=== PATIENT | female | born 1990 | race Caucasian/White ===

== ENCOUNTER 2019-12-26 20:38 | Emergency (ER) | payer SELFPAY ==
[2019-12-26 20:38] VITALS: BP 143/85; PULSE 97; RESP 16; TEMP 35.7; O2SAT 97; BMI 29.0
--- NOTE | 2019-12-26 21:14 | ED.VIS.GEN ---
History of Present Illness Chief Complaint: Lower Extremity Injury Detail of Chief Complaint: Right leg pain Informant: Patient Onset: Weeks Context: Gradual Onset Current Severity: Mild Maximum Severity: Mild Narrative: She presents with pain to the posterior right leg. She states that she slipped on some wet steps that were covered with leaves last week. She had antalgic gait but has now had increasing sharp pain in the posterior thigh and knee on the right. Patient wanted to ensure she did not have a blood clot. She denies chest pain. - Past Medical History (1) Asthma Status: Chronic Past Medical History - Allergies and Home Meds Allergies/Adverse Reactions: Allergies No Known Allergies Allergy (Verified 12/26/19 20:40) Primary Care Physician: Care Physician,No Primary [Primary Care Provider] - Prior records reviewed: Yes Lives: With Family Smoking Status: Former smoker Review of Systems General: Denies: Chills, Fever Eyes: Denies: Visual changes - bilaterally ENT: Denies: Bilateral ear pain Cardiovascular: Denies: Chest pain Respiratory: Denies: Dyspnea, Cough Gastrointestinal: Denies: Abdominal pain, Nausea, Vomiting, Diarrhea Genitourinary: Denies: Dysuria Musculoskeletal: Reports: Extremity Pain Skin: Denies: Rash Hematologic: Denies: Easy bruising, Easy bleeding Allergy: Denies: Uticaria Physical Exam Vital Signs/Narrative: Vital Signs Temp Pulse Resp BP Pulse Ox 12/26/19 20:38 96.2 F L 97 16 143/85 H 97 Inital Vital Signs reviewed: Yes General: Well nourished, Well developed Head: Normocephalic ENT: Moist mucous membranes Neck: Supple Cardiovascular: Regular rate, Regular rhythm Respiratory: No distress, CTA bilaterally Abdomen: Soft, Nontender Extremities: - - Mild tenderness to the posterior right thigh. No palpable cords. No significant edema. Strong distal pulses. Skin: Normal color Neurological: Alert, Oriented x3 Psychological: Normal affect Diagnostic/Tx/Re-eval Impressions Venous Duplex 12/26/19 21:23 IMPRESSION: No evidence of deep venous thrombosis in theRight lower extremities No color flow images of the right posterior tibial vein were obtained on this study at 2223 Reported and signed by: Mariely Jones DO Electronically Signed: Mariely Jones DO at 22:22 EST Tel , Service support , - Medical Decision Making Venous ultrasound reveals no evidence of DVT. Patient is reassured with this and will continue to monitor her symptoms. ED Disposition - Plan for ED Patient: Disposition: Home or Assisted Living Diagnosis: Strain of right knee and leg Instructions: ED Strain Muscle Ext Referrals: Sincere,DO Faith [NON-STAFF] - As Needed
--- NOTE | 2019-12-26 21:23 | US_ITS ---
HISTORY: Right posterior leg injury with pain US Venous Duplex LE Unilat / Limited # of images including paperwork:22 Comparison: none Technique: Color flow and Doppler analysis of theRight lower extremity Findings: There is satisfactory visualization of the Right common femoral, superficial femoral, popliteal veins. The veins compress satisfactorily and there is satisfactory pulsatility and augmentation noted. The posterior tibial veins compress but no color flow images were obtained of this vessel. US/Venous Duplex Imag/Limited/Uni IMPRESSION: No evidence of deep venous thrombosis in theRight lower extremities No color flow images of the right posterior tibial vein were obtained on this study at 2223 Reported and signed by: Mariely Jones DO Electronically Signed: Mariely Jones DO at 22:22 EST Tel , Service support ,
[2019-12-26 22:34] VITALS: BP 117/63; PULSE 64; RESP 15; O2SAT 97
== END 2019-12-26 22:35 | disposition home or self-care (01) ==
PROVIDERS: Emergency Provider Emergency Medicine
DX: S86.911A Strain of unspecified muscle(s) and tendon(s) at lower leg level, right leg, initial encounter (principal); W01.0XXA Fall on same level from slipping, tripping and stumbling without subsequent striking against object, initial encounter; Y93.9 Activity, unspecified; Y92.89 Other specified places as the place of occurrence of the external cause; Y99.9 Unspecified external cause status; J45.909 Unspecified asthma, uncomplicated; Z87.891 Personal history of nicotine dependence
CPT/HCPCS: 93971; 99282